=== PATIENT | male | born 1930 | race Caucasian/White ===

== ENCOUNTER 2016-07-29 16:17 | Inpatient (IN) | payer OTHER ==
[~2016-07-29] VITALS: Ht 188 cm; Wt 78.3 kg
[2016-07-29] MEDS ORDERED: AMIODARONE HCL 150 MG in D5W 5% 100 ML IV ONE ×2 (16:22→16:30)
[2016-07-29] MEDS ORDERED: AMIODARONE HCL (50 MG/ ML) 3 ML VIAL IV ONE ×2 (16:22)
[2016-07-29] MEDS ORDERED: AMIODARONE HCL 900 MG in DEXTROSE 500 ML IV SCH ×2 (16:22→16:37)
[2016-07-29] MEDS ORDERED: AMIODARONE HCL 900 MG IV ONE (16:24)
[2016-07-29] MEDS ORDERED: SODIUM CHLORIDE 0.9% 1,000 ML IV ONE ×2 (16:27→21:45)
[2016-07-29] MEDS ORDERED: FINA5TAB4 PO (16:38)
[2016-07-29] MEDS ORDERED: CARV25TA55 PO (16:38)
[2016-07-29] MEDS ORDERED: PRAV20TA3 PO (16:38)
[2016-07-29] MEDS ORDERED: FURO40TA4 PO (16:38)
[2016-07-29] MEDS ORDERED: AMIODARONE PO (16:38)
[2016-07-29] MEDS ORDERED: DIGO0.1262 PO (16:38)
[2016-07-29] MEDS ORDERED: LOSA25TA9 PO (16:38)
[2016-07-29] MEDS ORDERED: ASPI325T4 PO (16:41)
[2016-07-29] MEDS ORDERED: MORPHINE SULFATE 4 MG/ML SYRG IV ONE (16:45)
[2016-07-29] MEDS ORDERED: LORazepam 2MG/ML-1ML VIAL IV ONE (16:45)
[2016-07-29] MEDS ORDERED: DOPamine 1600MCG/ML 250 ML IV ONE ×3 (16:45→17:00)
[2016-07-29] MEDS ORDERED: ONDANSETRON HCL 4 MG/2 ML VIAL IV ONE (16:45)
[2016-07-29] MEDS ORDERED: NOREPINEPHRINE BITARTRATE 250 ML IV ONE (17:07)
[2016-07-29] MEDS ORDERED: NOREPINEPHRINE BITARTRATE 250 ML IV SCH (17:07)
[2016-07-29 17:10] LABS: Basophils # (auto) 0 uL; Eosinophils # (auto) 0 uL; Eosinophils % (auto) 0.1 % (0.0-7.0); Hematocrit 45.9 % (41.0-53.0); Hemoglobin 14.7 g/dL (13.5-17.5); Lymphocytes # (auto) 1.2 uL; Lymphocytes % (auto) 8.8 % (10.0-50.0); Mean Corpuscular Hemoglobin 30.6 pg (28.0-32.0); Mean Corpuscular Volume 95.6 fL (80.0-100.0); Mean Platelet Volume 10.5 fL (7.4-10.4); Monocytes # (auto) 1.6 uL; Monocytes % (auto) 11.9 % (0.0-12.0); Neutrophils # (auto) 10.4 uL; Neutrophils % (auto) 79.2 % (37.0-80.0); Platelet Count (auto) 177 10^3/uL (140-450); Red Cell Distribution Width 14.4 % (11.6-16.0); White Blood Cell 13.2 10^3/uL (4.4-10.8)
[2016-07-29 17:21] LABS: Partial Thromboplastin Time 25.2 sec (22.64-33.71); Prothrombin Time 12.2 sec (9.37-12.3)
[2016-07-29 17:22] LABS: Albumin 3.5 g/dL (3.4-5.0); BUN/Creatinine Ratio 23.1; Calcium 8.9 mg/dL (8.5-10.1)
[2016-07-29 17:24] LABS: Bilirubin, Total 1.7 mg/dL (0.2-1.0); Total Protein 6.2 g/dL (6.4-8.2)
[2016-07-29 17:30] LABS: Potassium 5.7 mmol/L (3.5-5.1)
[2016-07-29] MEDS ORDERED: DEXTROSE (50%) 50ML SYRG IV ONE (17:30)
[2016-07-29] MEDS ORDERED: InsuLIN REG 1unit/0.01ml Soln (100units/ml) IV ONE (17:30)
[2016-07-29] MEDS ORDERED: ALBUTEROL SULF 2.5 MG/0.5ML(0.5%) NEB SOLN NEB STA (17:30)
[2016-07-29] MEDS ORDERED: SODIUM BICARBONATE 8.4% INJ 50ML SYRINGE IV ONE (17:30)
[2016-07-29] MEDS ORDERED: CALCIUM GLUC 4.65 MEQ/10ML 4.65 MEQ in SODIUM CHL 0.9% 50 ML IV ONE (17:30)
[2016-07-29 17:33] LABS: INR 1.18 (0.9-1.15)
[2016-07-29 17:37] LABS: B-Type Natriuretic Peptide 1330.89 pg/mL (0-100)
[2016-07-29] MEDS ORDERED: PROMETHAZINE HCL 25 MG/ML 1ML ONE (17:59)
[2016-07-29] MEDS ORDERED: PROMETHAZINE HCL 25 MG/ML 1ML IV ONE (17:59)
[2016-07-30] MEDS ORDERED: ACETAMINOPHEN 325 MG TAB PO PRN (05:30)
[2016-07-30] MEDS ORDERED: MORPHINE SULF INJ 2 MG/ML SYRINGE 1ML IV PRN ×2 (05:30→16:45)
[2016-07-30] MEDS ORDERED: ONDANSETRON HCL 4 MG/2 ML VIAL IV PRN (05:30)
[2016-07-30] MEDS ORDERED: HYDROcodone-ACET 5/325MG TAB PO PRN (05:30)
[2016-07-30] MEDS ORDERED: LORazepam 2MG/ML-1ML VIAL IV PRN (05:30)
[2016-07-30] MEDS: SODIUM CHLORIDE 0.9% 1,000 ML IV SCH ×2 (05:41→21:50)
[2016-07-30 09:00] VITALS: BP 96/54
[2016-07-30] MEDS ORDERED: DEXTROSE (50%) 50ML SYRG IV PRN (09:30)
[2016-07-30 10:25] LABS: Albumin 3.4 g/dL (3.4-5.0); BUN/Creatinine Ratio 27.2; Bilirubin, Total 1.5 mg/dL (0.2-1.0); Calcium 9.2 mg/dL (8.5-10.1); Total Protein 6.2 g/dL (6.4-8.2)
[2016-07-30] MEDS: ACCU-CHEK COMFORT CURVE STRIP VI SCH ×3 (11:30→21:50)
[2016-07-30] MEDS: InsuLIN REG 1unit/0.01ml Soln (100units/ml) SC SCH ×3 (12:27→21:49)
[2016-07-30 12:55] VITALS: BP 90/51
[2016-07-30 16:36] VITALS: BP 82/82
[2016-07-30 22:00] VITALS: BP 89/58
[2016-07-30 23:31] VITALS: BP 89/58
[2016-07-31 05:00] VITALS: BP 99/54
[2016-07-31 06:18] LABS: DEFINITIVE VIEW TRANSMISSION; Hematocrit 48.5 % (41.0-53.0); Hemoglobin 15.6 g/dL (13.5-17.5); Mean Corpuscular Hemoglobin 30.6 pg (28.0-32.0); Mean Corpuscular Hgb Conc. 32.1 g/dL (32.0-36.0); Mean Corpuscular Volume 95.3 fL (80.0-100.0); Mean Platelet Volume 10.7 fL (7.4-10.4); Platelet Count (auto) 150 10^3/uL (140-450); Red Cell Distribution Width 13.6 % (11.6-16.0); SUSPECT VIEW TRANSMISSION; White Blood Cell 17.1 10^3/uL (4.4-10.8)
[2016-07-31] MEDS: InsuLIN REG 1unit/0.01ml Soln (100units/ml) SC SCH ×4 (06:30→22:00)
[2016-07-31] MEDS: ACCU-CHEK COMFORT CURVE STRIP VI SCH ×4 (06:32→22:28)
[2016-07-31] MEDS: INSULIN NPH Isophane (HUMAN) 1unit/0.01ml Susp(100units/ml) SC SCH (06:35)
[2016-07-31 06:44] LABS: Metamyelocytes % 0; Myelocytes % 0; Promyelocytes % 0; Reactive Lymphocytes 0
[2016-07-31 07:01] LABS: Albumin 3.2 g/dL (3.4-5.0); BUN/Creatinine Ratio 28.7; Bilirubin, Total 1.2 mg/dL (0.2-1.0); Potassium 4.7 mmol/L (3.5-5.1); Total Protein 5.8 g/dL (6.4-8.2)
[2016-07-31 08:05] LABS: Platelet Estimate Adequate; RBC Morphology Normal
[2016-07-31 09:06] VITALS: BP 92/59
[2016-07-31] MEDS: cefTRIAXone 1GM/50ML D5W 50 ML IV SCH (11:57)
[2016-07-31 13:00] VITALS: BP 81/46
[2016-07-31 16:54] VITALS: BP 91/48
[2016-07-31] MEDS: SODIUM CHLORIDE 0.9% 1,000 ML IV SCH (18:58)
[2016-07-31 22:10] VITALS: BP 119/72
[2016-07-31 22:12] VITALS: BP 85/49
[2016-08-01 05:35] VITALS: BP 88/45
[2016-08-01 06:04] LABS: Basophils # (auto) 0 uL; Basophils % (auto) 0.2 % (0.0-2.0); DEFINITIVE VIEW TRANSMISSION; Eosinophils # (auto) 0 uL; Eosinophils % (auto) 0.1 % (0.0-7.0); Hematocrit 45.7 % (41.0-53.0); Hemoglobin 14.9 g/dL (13.5-17.5); Lymphocytes # (auto) 1.7 uL; Lymphocytes % (auto) 10.1 % (10.0-50.0); Mean Corpuscular Hemoglobin 30.7 pg (28.0-32.0); Mean Corpuscular Hgb Conc. 32.5 g/dL (32.0-36.0); Mean Corpuscular Volume 94.5 fL (80.0-100.0); Mean Platelet Volume 11.1 fL (7.4-10.4); Monocytes # (auto) 2.1 uL; Monocytes % (auto) 12.3 % (0.0-12.0); Neutrophils % (auto) 77.3 % (37.0-80.0); Platelet Count (auto) 186 10^3/uL (140-450); Red Cell Distribution Width 14.6 % (11.6-16.0); White Blood Cell 16.8 10^3/uL (4.4-10.8)
[2016-08-01 06:27] LABS: Calcium 8.4 mg/dL (8.5-10.1); Potassium 4.7 mmol/L (3.5-5.1)
[2016-08-01 06:33] LABS: BUN/Creatinine Ratio 29.9
[2016-08-01] MEDS: InsuLIN REG 1unit/0.01ml Soln (100units/ml) SC SCH ×2 (07:00→11:30)
[2016-08-01] MEDS: INSULIN NPH Isophane (HUMAN) 1unit/0.01ml Susp(100units/ml) SC SCH (07:00)
[2016-08-01] MEDS: ACCU-CHEK COMFORT CURVE STRIP VI SCH ×2 (07:04→11:30)
[2016-08-01] MEDS: SODIUM CHLORIDE 0.9% 1,000 ML IV SCH (07:30)
[2016-08-01 08:00] VITALS: BP 107/74
[2016-08-01] MEDS: cefTRIAXone 1GM/50ML D5W 50 ML IV SCH (10:29)
[2016-08-01 13:06] VITALS: BP 107/74
[2016-08-01 13:36] VITALS: BP 108/68
== END 2016-08-01 15:22 | disposition hospice, home (50) | DRG 308 ==
LOC: ER 16:22 → EAST 16:23
PROVIDERS: ADMIT Nurse Practitioner; ATTEND Family Medicine
PROC: 5A09457 Assistance with Respiratory Ventilation, 24-96 Consecutive Hours, Continuous Positive Airway Pressure (ICD-10-PCS; principal; 2016-07-29)
DX: I47.1 Supraventricular tachycardia (principal); I50.43 Acute on chronic combined systolic (congestive) and diastolic (congestive) heart failure; R57.0 Cardiogenic shock; N18.4 Chronic kidney disease, stage 4 (severe); E87.5 Hyperkalemia; Z51.5 Encounter for palliative care; Z66 Do not resuscitate; E11.21 Type 2 diabetes mellitus with diabetic nephropathy; I95.9 Hypotension, unspecified; E11.22 Type 2 diabetes mellitus with diabetic chronic kidney disease; I25.10 Atherosclerotic heart disease of native coronary artery without angina pectoris; I25.5 Ischemic cardiomyopathy; I48.0 Paroxysmal atrial fibrillation; I49.01 Ventricular fibrillation; I70.0 Atherosclerosis of aorta; J44.9 Chronic obstructive pulmonary disease, unspecified; Z95.810 Presence of automatic (implantable) cardiac defibrillator; Z79.899 Other long term (current) drug therapy; Z79.4 Long term (current) use of insulin; I25.2 Old myocardial infarction; Z79.82 Long term (current) use of aspirin
CPT/HCPCS: 36415; 71010; 80048; 80053; 82962; 83735; 83880; 84484; 85007; 85025; 85027; 85049; 85379; 85610; 85730; 87086; 87088; 87186; 93005; 93970; 94640; 94660; 96361; 96374; 96375; 97110; 97530; 99291; J0696; J1815; J2405; J3490; J7060